=== PATIENT | male | born 1945 | race Caucasian/White ===

== ENCOUNTER 2022-11-22 07:38 | Outpatient (CLI) | payer MEDICARE ==
[2022-11-22] MEDS ORDERED: Iopamidol 370 76% 100 ML VIAL ONE (10:23)
== END 2022-11-22 07:39 | disposition home or self-care (01) ==
LOC: CT 07:38
PROVIDERS: ATTEND Internal Medicine Cardiovascular Disease
DX: I71.20 Thoracic aortic aneurysm, without rupture, unspecified (principal); K76.89 Other specified diseases of liver; J98.4 Other disorders of lung
CPT/HCPCS: 71275; 82565

== ENCOUNTER 2024-03-11 08:28 | Outpatient (CLI) | payer MEDICARE | END 2024-03-11 08:29 | disposition home or self-care (01) | LOC: CT 08:28 | PROVIDERS: ATTEND Internal Medicine Cardiovascular Disease | DX: I70.0 Atherosclerosis of aorta (principal); I77.810 Thoracic aortic ectasia | CPT/HCPCS: 71275; 82565 ==

== ENCOUNTER 2025-09-01 07:32 | Outpatient (CLI) | payer MEDICARE ==
[2025-09-01 08:12] LABS: Estimated GFR - POC 47.0
== END 2025-09-01 07:33 | disposition home or self-care (01) ==
LOC: CT 07:32
PROVIDERS: ATTEND Internal Medicine Cardiovascular Disease
DX: R00.1 Bradycardia, unspecified (principal)
CPT/HCPCS: 36415; 71275; 82565